=== PATIENT | female | born 1950 | race Caucasian/White ===

== ENCOUNTER 2019-09-08 20:05 | Emergency (ER) | payer MEDICARE ==
[~2019-09-08] VITALS: Ht 157.5 cm; Wt 106.8 kg
[2019-09-08 20:43] LABS: BASO % 0 % (0-3); EOS # 0.1 x10^3/uL (0.0-0.7); EOS % 1 % (0-3); HEMATOCRIT 38.7 % (36.0-47.0); LYMPH # 1.5 x10^3/uL (1.0-4.8); LYMPH % 15 % (24-48); MEAN CORPUSCULAR HEMOGLOBIN 30 pg (25-35); MEAN CORPUSCULAR HGB CONC 34 g/dL (31-37); MEAN CORPUSCULAR VOLUME 88 fL (79-100); MONO # 0.7 x10^3/uL (0.0-1.1); MONO % 7 % (0-9); NEUT # 7.5 x10^3/uL (1.8-7.7); NEUT % 77 % (31-73); PLATELET COUNT 198 x10^3/uL (140-400); WHITE BLOOD COUNT 9.8 x10^3/uL (4.0-11.0)
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
[2019-09-08 20:47] LABS: GFR 55.1; POTASSIUM 3.9 mmol/L (3.5-5.1)
[2019-09-08 20:53] LABS: ALBUMIN 3.3 g/dL (3.4-5.0); ALBUMIN/GLOBULIN RATIO 0.7 (1.0-1.7); TOTAL BILIRUBIN 0.4 mg/dL (0.2-1.0); TOTAL PROTEIN 7.8 g/dL (6.4-8.2)
[2019-09-08] MEDS ORDERED: LABETALOL 20 MG/4 ML DISP.SYRIN. IVP ONE (21:30)
[2019-09-08 22:16] LABS: BILIRUBIN,URINE NEGATIVE (NEG); CLARITY,URINE CLEAR; COLOR,URINE YELLOW; NITRITE,URINE NEGATIVE (NEG); PROTEIN,URINE 100 mg/dL (NEG-TRACE); UROBILINOGEN,URINE 0.2 mg/dL (0.2 mg/dL)
[2019-09-08 22:34] LABS: BACTERIA,URINE MANY /HPF (0-FEW); SQUAMOUS EPITHELIAL CELL,UR MOD /LPF
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
[2019-09-08] MEDS ORDERED: HYDROcodone/APAP 5/325MG 1 TAB TABLET PO ONE (23:55)
[2019-09-09] MEDS ORDERED: HYDR-3164 PO (00:24)
[2019-09-09] MEDS ORDERED: LABETALOL 20 MG/4 ML DISP.SYRIN. IVP ONE (00:30)
[2019-09-09 01:30] VITALS: BP 149/74
--- NOTE | 2019-09-09 05:44 | EKG ---
[facility] [address] [place] [address] Test Date: 2019-09-08 Test Time: 22:04:36 Pat Name: HENRIETTA MOY Department: Room: Gender: F Administrative Services Coordinator: : 1950 Requested By: CONNIE KONG Order Number: [id number] Reading MD: Chucho Elliott MD Measurements Intervals [place] Rate: 62 P: 39 CO: 158 QRS: 38 QRSD: 84 T: 76 QT: 452 QTc: 461 Interpretive Statements SINUS RHYTHM Electronically Signed On 09-09-2019 8:36:45 CDT by Chucho Elliott MD
== END 2019-09-09 01:38 | disposition home or self-care (01) ==
LOC: ER 20:05
DX: G89.29 Other chronic pain (principal); M54.5 Low back pain; R41.0 Disorientation, unspecified
CPT/HCPCS: 36415; 51702; 70450; 80053; 81001; 82962; 84484; 85025; 87086; 93005; 96374; 96375; 99285; J3490

== ENCOUNTER → 2021-01-24 | Outpatient (CLI) | payer MEDICARE ==
[~2021-01-24] MED LIST: HYDR-3164 PO
--- NOTE | 2021-01-24 15:15 | KCIC ---
EXAM: Lumbar spine MRI without contrast. HISTORY: Spondylosis. Left foot drop. TECHNIQUE: Multiplanar, multisequence magnetic resonance imaging of the lumbar spine was performed wi thout contrast. COMPARISON: Radiographs dated 03/13/2020. FINDINGS: There is mild lumbar scoliosis and hyperlordosis. There is 6 mm grade 1 anterolisthesis of L4 on L5 and 2 mm retrolisthesis of L1 on L2. There is degenerative endplate remodeling with osteophy tosis at L5-S1. There is chronic mild decreased vertebral body height at L5. There is additional endp late remodeling and disc space narrowing predominantly at L1-L2 and L4-L5. There is no acute or subac [place] fracture. There are few osseous hemangiomas. There is no suspicious osseous lesion. The conus ter minates at L1-L2. At L1-L2, there is a left lateral predominant disc bulge and endplate osteophytosis. There is mild bi lateral facet arthropathy. There is mild retrolisthesis. There is mild left foraminal stenosis. At L2-L3, there is a and suspected shallow left foraminal disc protrusion superimposed on a left late ral predominant disc bulge and endplate osteophytosis. There is mild bilateral facet arthropathy. The re is moderate left foraminal stenosis. At L3-L4, there is a left lateral predominant disc bulge and endplate osteophytosis. There is moderat e bilateral facet arthropathy. There is hypertrophy of the ligamentum flavum. There is mild left fora glenn stenosis. There is minimal central canal stenosis. At L4-L5, there is a disc bulge and endplate osteophytosis. There is severe bilateral facet arthropat hy. There is grade 1 anterolisthesis. There is moderate right and [id number] left foraminal carl nosis. There is mild central canal stenosis. At L5-S1, there are bilateral foraminal to extra foraminal disc protrusions and osteophyte complexes superimposed on a disc bulge and endplate osteophytosis. There is severe right and mild left facet ar thropathy. There is severe right and moderate left foraminal stenosis. IMPRESSION: 1. Multilevel degenerative change involving the lumbar spine and lower thoracic spine, described in d etail above. This is associated with mild left foraminal stenosis at L1-L2, moderate left foraminal s tenosis at L2-L3, mild left foraminal and minimal central canal stenosis at L3-L4, moderate right and mild to moderate left foraminal and mild central canal stenosis at L4-5 and severe right and moderat e left foraminal stenosis at L5-S1. 2. Lumbar scoliosis, hyperlordosis and grade 1 anterolisthesis of L4 and L5. There is also slight ret rolisthesis of L1 on L2. 3. Chronic mild decreased vertebral body height at L5. There is no acute osseous finding. Electronically signed by: Delores Tim MD (01/24/2021 3:12 PM) [id number]
== END ==
LOC: KCIC MRI 12:21
PROVIDERS: ATTEND Specialist
DX: M47.817 Spondylosis without myelopathy or radiculopathy, lumbosacral region (principal); M51.27 Other intervertebral disc displacement, lumbosacral region; M48.07 Spinal stenosis, lumbosacral region; M41.86 Other forms of scoliosis, lumbar region; M25.78 Osteophyte, vertebrae
CPT/HCPCS: 72148